=== PATIENT | female | born 1995 | race African-American/Black ===

== ENCOUNTER 2017-06-25 11:27 | Day surgery (SDC) | payer MEDICAID ==
[2017-06-25 12:28] VITALS: BP 145/86; TEMP 98.5; BMI 28.1
[2017-06-25] MEDS ORDERED: FLU VACC QS2017-18 36 mo. & older 0.5 ML SYRINGE IM ONE (12:30)
--- NOTE | 2017-06-25 12:31 | PDOC.LDHP ---
Labor and Delivery H&P Chief complaint: other (Blood pressure monitoring) HPI: 21 yo female @ 36.1 weeks dated by 3T US is here as she was having high BP at outside PNC. States shes had blood pressures recorded at outside clinic was 160-180. Mainly pressures have been recorded around 130's. Feeling baby move. Denies ctx, bleeding or loss of fluid. Denies any headaches, dizziness, lightheadness. Denies any vision changes. Reports some swelling in her legs overnight. Denies any other concerns at this time. Current gestational age (weeks): 36 (1 day) Due date: 07/22/17 Dating criteria: other (3T US) Grav: 1 Para: 0 Current complications: none Abnormal US findings: No Past Medical History: PMH: none PSH: none Current medications: pre-annie vitamins Social history: none - Physical Exam Vital signs reviewed and normal: yes General: NAD, resting Heart: RRR Lungs: CTAB Abdomen: NTTP Extremeties: no edema FHT: category 1, variability present [place] contractions every: 0 - OB Labs Blood type: B RH: positive Antibody Screen: negative HIV: negative RPR: negative HEPSAg: negative 1 hour GCT: negative GBS: unknown Rubella: immune - Assessment Elevated BP at outisde Clinic - Plan Plan: observation in L&D -: 21 yo f @ 36.1 wks dated by 3T US is here due to high BP at PNC -Ordering CMP, CBC, urine pr/cr to assess for signs of preeclampsia -BP elevated at 130's on monitor. Likely has gestational HTN. will continue to monitor for a few hours and make sure she doesn't have any sever pressures. -FHT 140. Cat 1 strip. No ctx noted. -will continue to monitor patient. Late to Care -pt presented to care only last week. Labs outside were normal. -Will continue to monitor with FHT <Aryan Méndez - Last Filed: 06/25/17 12:27> <Juana Duncan - Last Filed: 06/25/17 13:20> Allergies/Adverse Reactions: Allergies Allergy/AdvReac Type Severity Reaction Status Date / Time No Known Allergies Allergy Unverified 06/25/17 12:21 Attending Addendum - Attending Addendum I personally evaluated the patient and discussed the management with Dr. Méndez I agree with the History, Examination, Assessment and Plan documented above with any addition or exceptions noted below. 21 yo female at 36.1 wks by 34.6 wk sono (BPD only but c/w anatomy sono at 35.6 wks) here for traige for elevated BP. Patient states she is doing well. No BOWEN, visual changes, CP, SOB, abdominal pain. Mild edema noted yesterday to LE bilaterally. Otherwise she also reports good FM. Denies LOF, VB, discharge, and contractions. Today during OV was noted to have elevated BP and was sent for triage. During triage BP has been some mild range pressures but largely normotensive. Unable to know baseline due to late entry of care at 34.6 wks. Stat labs pending. BPP ordered. NST reactive. Will continue prolonged BP monitoring. 1. sIUP: IOB labs and anatomy sono reveiwed but limited by gestational age. 1 hour gtt = 109. Sick cell screen negative. GBS pending. No flu. No Tdap. 2. Late/incomplete care: Poor dating. 3. Elevated BP: At present appears to have gHTN. Will continue to monitor. Repeating labs today. On 06/22/17 labs were the following: Cr = 0.72, AST = 12, PLT = 243, Up/cr = 203. Remains asymptomatic. EFW = 2645g (35.5%) at 35.6 therefore no need to repeat at this time. 4. NSAID use: patient reported NSAID use during . BPP pending. Continue q 15 min BP monitoring. Labs and antepartum testing pending. NST reactive. If just gHTN will consider starting steroid course due to poor dating with possible need for early delivery due to spectrum of disease. Will need TID daily BP monitoring. Will need weekly testing and preE labs. Add 24 hour urine protein? Possible d/c to home with precautions. If preE will consider obs overnight with steroid course vs delivery pending severity. Will reassess prn and hourly. Ino <Juana Dnucan - Last Filed: 06/25/17 13:20>
[2017-06-25 13:05] LABS: #Basophils 0.1 thou/uL (0.0-0.2); #Eosinphils 0.1 thou/uL (0.0-0.7); #Monocytes 0.5 thou/uL (0.11-0.59); #Neutrophils 3.4 thou/uL (1.40-6.50); %Basophils 1.5 % (0.0-1.0); %Eosinophils 1.9 % (0.0-10.0); %Lymphocytes 32.1 % (28.0-48.0); %Monocytes 8.1 % (0.0-4.0); %Neutrophils 56.4 % (31.0-61.0); Hemoglobin 11.7 g/dL (12.0-16.0); Mean Corpuscular HGB CONC 33.8 g/dL (32.0-36.0); Mean Corpuscular Hemoglobin 32.6 pg (25.0-35.0); Mean Corpuscular Volume 96.5 fl (77.0-87.0); Mean Platelet Volume 7.5 fL (7.4-10.4); Platelet Count 235 thou/uL (130-400); RBC Distribution Width 11.8 % (11.5-14.5); Red Blood Cell (RBC) Count 3.59 mill/uL (4.00-5.20); White Blood Cell (WBC) Count 6.1 thou/uL (4.8-10.8)
[2017-06-25 13:26] LABS: Creatinine, Urine 40.44 mg/dL (47-110); Protein, Urine Random Quant Less than 10 mg/dL
[2017-06-25 13:28] LABS: ALT (SGPT) 7 U/L (8-55); AST (SGOT) 13 U/L (5-30); Albumin 3.3 g/dL (3.5-5.0); Alkaline Phosphatase 228 U/L (40-150); Anion Gap 9 mmol/L (10-20); BUN (Urea Nitrogen) 6 mg/dL (8.4-21.0); Bilirubin, Total 0.5 mg/dL (0.2-1.2); Calc. Creatinine Clearance 152 mL/min (70-130); Calcium 8.9 mg/dL (7.8-10.44); Carbon Dioxide 26 mmol/L (22-29); Chloride 105 mmol/L (98-107); Estimated GFR-MDRD Greater than 90; Globulin 3.3 g/dL (2.4-3.5); Glucose 99 mg/dL (70-105); Protein, Total 6.6 g/dL (6.0-8.3); Sodium 136 mmol/L (136-145)
[2017-06-25] MEDS ORDERED: Betamet Acet/Betamet Na Ph 30 MG/5 ML VIAL IM SCH (14:00)
--- NOTE | 2017-06-25 14:42 | PDOC.EVN ---
Event Note - Event Note Event Note: Patient doing well. No severe range blood pressures and asymptomatic. Patient is going to collect 24 hour urine protein at home due to equivocal protein/ creatinine ratio starting today. BPP 8/8, NST reactive. First dose of betamethasone given and patient to return for second tomorrow. SVE /high. Patient discharged home. <Logan Valero - Last Filed: 06/25/17 14:40> Attending Addendum - Attending Addendum I personally evaluated the patient and discussed the management with Dr. Valero I agree with the History, Examination, Assessment and Plan documented above with any addition or exceptions noted below. 21 yo at 36.1 wk by 36.4 wk sono dx with gHTN. Due to poor dating and concern for need for early delivery, BMZ course started. Cr mildly high at this time with equivocal pro/cr ratio. Will return for 2nd dose BMZ and 24 hour urine. Sent with BP monitor for TID BP evaluation. Strict precautions discussed. BP normotensive to mild range on occasion. Will need twice weekly labs and weekly testing. Will need repeat growth at 37 wks. Ino <Juana Duncan - Last Filed: 06/25/17 15:40>
--- NOTE | 2017-06-25 15:07 | ULT ---
LIMITED OBSTETRICAL ULTRASOUND: INDICATION: History of gestational hypertension. FINDINGS: The fetus was 2 out of 2 for movement, 2 out of 2 for tone, 2 out of 2 for breathin g, and 2 out of 2 for amniotic fluid volume. The biophysical profile is 8 out of 8. The CAMILO measure d 8.6 cm. The average gestational age by ultrasound was 36 weeks and 1 day with estimated date of de livery of 07/22/17. Cardiac activity is noted at 149 b.p.m. The placenta is anterior in location with out overt evident of previa. IMPRESSION: 1. Biophysical profile 8 out of 8. 2. Amniotic fluid index of 8.6 is near the 5th percentile based on gestational age. Close clinical and sonographic followup is recommended. POS: JANICE
== END 2017-06-25 14:35 | disposition home or self-care (01) ==
LOC: L&D/OP 11:27
PROVIDERS: ATTEND Student in an Organized Health Care Education/Training Program
DX: O13.3 Gestational [pregnancy-induced] hypertension without significant proteinuria, third trimester (principal); Z79.899 Other long term (current) drug therapy; Z3A.36 36 weeks gestation of pregnancy
CPT/HCPCS: 36415; 76819; 80053; 82570; 84156; 84550; 85025; J0702

== ENCOUNTER 2017-06-26 14:53 | Day surgery (SDC) | payer MEDICAID ==
[2017-06-26 15:07] VITALS: BP 150/91; TEMP 98.1; BMI 28.1
[2017-06-26 15:15] LABS: Collection Duration 24 hrs; Urine Total Volume 2200 mL (600-1600)
[2017-06-26] MEDS ORDERED: Betamet Acet/Betamet Na Ph 30 MG/5 ML VIAL IM SCH (15:30)
[2017-06-26] MEDS ORDERED: FLU VACC QS2017-18 36 mo. & older 0.5 ML SYRINGE IM ONE (15:30)
--- NOTE | 2017-06-26 15:36 | PDOC.LDPN ---
Labor & Delivery Progress Note - Subjective Subjective: comfortable, no concerns - Objective Abnormal vital signs: Initial elevated BP to 150s/90s, improved to 135/88 when pt settled down General: NAD Uterine fundus: non tender FHT: category 1 (reactive NST) - Assessment (1) Gestational hypertension Code(s): O13.9 - GESTATIONAL HTN W/O SIGNIFICANT PROTEINURIA, UNSP TRIMESTER Status: Acute QualifierTitle: Trimester: third trimester Qualified Code(s): O13.3 - Gestational [-induced] hypertension without significant proteinuria, third trimester Comment: 21 yo @ 36.2 WGA by 3T US presents for second steroid injection. She denies vision changes, abd pain, swelling, headache, LOF, vaginal bleeding, ctx. Reports movement. Patient was late to OB care, but has had elevated BP in clinic and is being worked up for Pre-eclampsia. Her BP at home are much lower than in clinic. She kept a log since yesterday and they were 138/82 and 123/71. BP here has been from 135/88-158/97. NST reactive -Collected 24 h urine protein, result was <10. No signs/symptoms of pre- eclampsia at this time. -Completed both doses of steroids -Encourage TID BP monitoring, will send with BP log -F/u in PNC on Wednesday -Will d/c home. -: d/c home with f/u at pre-annie clinic on Wednesday <Rupa Nicolas - Last Filed: 06/26/17 15:34> Attending Addendum - Attending Addendum I personally evaluated the patient and discussed the management with Dr. Nicolas I agree with the History, Examination, Assessment and Plan documented above with any addition or exceptions noted below. 21 yo at 36.2 wk by 36.4 wk sono dx with gHTN here for BMZ#2 and 24 hour protein collection. Due to poor dating and concern for need for early delivery, BMZ course started. Now completed. Cr mildly high at this time with equivocal pro/cr ratio during workup. 24 our protein now collected. No evidence of proteinuria at this time. Will continue to trend routinely at PNC OV. Patient will likely convert to severe gHTN vs preeclampsia. Continue BP monitor at home TID. Strict precautions discussed. Remains asymptomatic. Will need twice weekly labs/OVs/urine protein and weekly testing. Will need repeat growth at 37 wks. Ino <Juana Duncan - Last Filed: 06/26/17 17:10>
[2017-06-26 15:42] LABS: Protein, Urine Less than 10 mg/dL (1-14)
== END 2017-06-26 16:05 | disposition home or self-care (01) ==
LOC: L&D/OP 14:53
PROVIDERS: ATTEND Student in an Organized Health Care Education/Training Program
DX: O13.3 Gestational [pregnancy-induced] hypertension without significant proteinuria, third trimester (principal); Z3A.36 36 weeks gestation of pregnancy; Z79.899 Other long term (current) drug therapy
CPT/HCPCS: 59025; 84156; 96372; 99283

== ENCOUNTER 2017-07-08 10:28 | Inpatient (IN) | payer MEDICAID ==
[2017-07-08 10:58] VITALS: BMI 28.6
[2017-07-08] MEDS ORDERED: FLU VACC QS2017-18 36 mo. & older 0.5 ML SYRINGE IM ONE (11:15)
[2017-07-08] MEDS ORDERED: Ondansetron HCl/PF 4 MG/2 ML Vial IVP PRN (11:26)
[2017-07-08] MEDS ORDERED: Lidocaine 1% (PF) 30 ML VIAL SC PRN (11:26)
[2017-07-08] MEDS ORDERED: Promethazine HCl 25 MG/ML VIAL IM PRN (11:26)
[2017-07-08] MEDS ORDERED: LR / Pitocin 40 units/1000 ml 1,000 ML IV PRN (11:26)
[2017-07-08] MEDS ORDERED: Acetaminophen 500 MG TAB PO PRN (11:26)
[2017-07-08 11:46] LABS: Bilirubin Negative (Negative); Blood, Urine Negative (Negative); Clarity CLEAR (Clear); Glucose, Urine (Dipstick) Negative (Negative); Hemoglobin 11.6 g/dL (12.0-16.0); Leukocyte Trace (Negative); Mean Corpuscular Hemoglobin 32.9 pg (25.0-35.0); Mean Corpuscular Volume 96.7 fl (77.0-87.0); Mean Platelet Volume 7.8 fL (7.4-10.4); Nitrite Negative (Negative); Platelet Count 211 thou/uL (130-400); Protein, Urine (Dipstick) Negative (Neg-Trace); RBC Distribution Width 12.3 % (11.5-14.5); Red Blood Cell (RBC) Count 3.53 mill/uL (4.00-5.20); Urobilinogen 0.2 mg/dL (0.2-1.0); White Blood Cell (WBC) Count 6.7 thou/uL (4.8-10.8)
[2017-07-08 11:49] LABS: Bacteria/HPF Rare-Few HPF (None Seen); Hyaline Casts/LPF 0-3 HYALINE CAST LPF (0-3 Hyaline); Pathc Cast-AUWi Flag 0.27 (0-2.49); RBC/HPF 0-3 HPF (0-3); Squamous Epithelial 0-3 HPF (0-3)
--- NOTE | 2017-07-08 11:50 | PDOC.LDHP ---
Labor and Delivery H&P Chief complaint: other (Gestation htn history, found to have elevated pressures at clinic) HPI: 21 yo @ 38 weeks w/ h/o gestational htn and positive chlamydia during presents from clinic after having 2 separate elevated BPs highest 150s systolic. She denies headache, nvdc, cp, sob, epigastric and ruq pain and denies vision changes. Current gestational age (weeks): 38 Due date: 07/22/17 Dating criteria: other (poor dating, 3rd tri US) Grav: 1 Para: 0 OB History Details: Gestational htn chlamydia poor dates received steroids X2 per OB provider Current complications: gestational hypertension Abnormal US findings: No (Vertex presentation, anterior placenta) Current medications: pre- vitamins Previous surgical history: none Social history: none - Physical Exam Abnormal vital signs: elevated BP @ 138/74 General: NAD Heart: RRR Lungs: nonlabored breathing Abdomen: NTTP Extremeties: no edema FHT: category 1, variability present [place] contractions every: absent - Vaginal Exam cm dilated: 1 Effacement: 0% Station: -3 - OB Labs Blood type: B RH: positive Antibody Screen: negative HIV: negative RPR: negative HEPSAg: negative 1 hour GCT: negative GBS: negative Urine drug screen: not done Rubella: immune - Assessment L&D Assessment: medically indicated induction (Gest htn @ 38 weeks -will admit to l&d for induction and r/o preeclampsia -cbc, cmp, urine protein/creatinine, uric acid, LDH -Pt had positive chlamydia test with witnessed medication administration after positive test -monitor vitals per routine) - Plan Plan: admit to L&D, cervical ripening, labor augmentation if indicated, anesthesia consult for pain management <Bebo Cui - Last Filed: 07/08/17 11:47> <Asad Diallo - Last Filed: 07/08/17 13:23> Allergies/Adverse Reactions: Allergies Allergy/AdvReac Type Severity Reaction Status Date / Time No Known Allergies Allergy Verified 07/08/17 10:53 Attending Addendum - Attending Addendum I personally evaluated the patient and discussed the management with Dr. Cui. I agree with and repeated the History, Examination, Assessment and Plan documented above with any addition or exceptions noted below. G1 @ 38w by supoptimal dating (3T sono) who presents from [facility] for elevated pressures. +FM, denies preE symptoms, no LOF/vb/ctx. Past history reviewed. A/P: Gestational hypertension, uncontrolled, vs superimposed preE Chlamydia s/p tx GBS neg Late to care 1. PreE workup 2. Ripening with cytotec 3. Monitor BP 4. Anticipate <Asad Diallo - Last Filed: 07/08/17 13:23>
[2017-07-08 11:57] LABS: Specific Gravity, Urine 1.004 (1.002-1.036)
[2017-07-08] MEDS: Misoprostol 100 MCG TAB VAG SCH (12:14)
[2017-07-08 12:34] LABS: ALT (SGPT) 7 U/L (8-55); AST (SGOT) 12 U/L (5-30); Albumin 3.4 g/dL (3.5-5.0); Alkaline Phosphatase 263 U/L (40-150); Anion Gap 9 mmol/L (10-20); BUN (Urea Nitrogen) 10 mg/dL (8.4-21.0); Bilirubin, Total 0.5 mg/dL (0.2-1.2); Calc. Creatinine Clearance 166 mL/min (70-130); Calcium 9.2 mg/dL (7.8-10.44); Carbon Dioxide 24 mmol/L (22-29); Chloride 107 mmol/L (98-107); Estimated GFR-MDRD Greater than 90; Globulin 3.2 g/dL (2.4-3.5); Glucose 71 mg/dL (70-105); Potassium 3.8 mmol/L (3.5-5.1); Protein, Total 6.6 g/dL (6.0-8.3); Sodium 136 mmol/L (136-145)
[2017-07-08 12:51] LABS: Syphilis Antibody Nonreactive (Nonreactive); Syphilis Antibody Index 0.03 S/CO (<1.00 Non-Reactive)
[2017-07-08 12:52] LABS: HBSAg Index 0.19 S/CO (0-0.99); Hep B Surf Ag Non-Reactive S/CO (NonReactive)
--- NOTE | 2017-07-08 16:22 | PDOC.LDPN ---
Labor & Delivery Progress Note - Subjective Subjective: comfortable, no concerns - Objective Abnormal vital signs: Elevated BP highest 145 sys General: NAD Uterine fundus: non tender Dilation: 3 Effacement: 50% Station: -2 FHT: category 1, variability present (HR 150) [place] contractions every: 1-3 - Assessment (1) Term Code(s): Z34.80 - ENCOUNTER FOR SUPRVSN OF NORMAL , UNSP TRIMESTER Current Visit: Yes Status: Acute (2) Gestational hypertension Code(s): O13.9 - GESTATIONAL HTN W/O SIGNIFICANT PROTEINURIA, UNSP TRIMESTER Current Visit: No Status: Acute QualifierTitle: Trimester: third trimester Qualified Code(s): O13.3 - Gestational [-induced] hypertension without significant proteinuria, third trimester Plan: continue plan of care -: Pre e labs negative continue to monitor pressures made cervical change after placement of cytotec contractions q1-3 min, FHR 150s mod variability last check 3, 50, -2 augment with pitocin if contractions subside, for now continue plan of care cervical checks q2-3hrs <Bebo Cui - Last Filed: 07/08/17 16:17> Attending Addendum - Attending Addendum I personally evaluated the patient and discussed the management with Dr. Cui. I agree with the History, Examination, Assessment and Plan documented above with any addition or exceptions noted below. <Asad Diallo - Last Filed: 07/09/17 05:40>
[2017-07-08] MEDS: LR 500 ML/Oxytocin 10 units 500 ML IV SCH (17:17)
--- NOTE | 2017-07-08 20:20 | PDOC.LDPN ---
Labor & Delivery Progress Note - Subjective Subjective: comfortable - Objective Vital signs reviewed and normal: yes General: NAD, resting Uterine fundus: non tender SVE: 20:10 by Silvia Dilation: 3 Effacement: 50% Station: -2 FHT: category 1, variability present [place] contractions every: q2-3 minutes - Assessment (1) Term Code(s): Z34.80 - ENCOUNTER FOR SUPRVSN OF NORMAL , UNSP TRIMESTER Current Visit: Yes Status: Acute Comment: 21 year old at 38 wks presents for induction of labor for gestational HTN - Last cervical check /-2; unchanged from 16:00 exam - Currently on pitocin at 4 units; increased from 2 units; continue to titrate - s/p cytotec x1; tachysystole - Pre-E labs negative - q4h checks while in latent stage of labor - Consider IUPC/rupture of membranes at next check depending on station (2) Gestational hypertension Code(s): O13.9 - GESTATIONAL HTN W/O SIGNIFICANT PROTEINURIA, UNSP TRIMESTER Current Visit: No Status: Acute QualifierTitle: Trimester: third trimester Qualified Code(s): O13.3 - Gestational [-induced] hypertension without significant proteinuria, third trimester Comment: 21 y/o at 38 wks presents for induction of labor for gestational HTN - Elevated BP in clinic; sent over for induction - Pre-E labs negative - Continue titration of pitocin Plan: continue plan of care, labor augmentation, pitocin for augmentation <Mesha Vega - Last Filed: 07/08/17 20:32> Attending Addendum - Attending Addendum I personally evaluated the patient and discussed the management with Dr. Vega. I agree with the History, Examination, Assessment and Plan documented above with any addition or exceptions noted below. <Deepak Ballesteros - Last Filed: 07/08/17 23:02>
[2017-07-09] MEDS: Lactated Ringer's 1,000 ML IV SCH ×5 (02:46→18:11)
--- NOTE | 2017-07-09 05:34 | PDOC.LDPN ---
Labor & Delivery Progress Note - Subjective Subjective: comfortable - Objective Vital signs reviewed and normal: yes General: NAD, resting Uterine fundus: non tender SVE: 03:15 Dilation: 3 Effacement: 50% Station: -1 FHT: category 1, variability present [place] contractions every: q2-3 min - Assessment (1) Term Code(s): Z34.80 - ENCOUNTER FOR SUPRVSN OF NORMAL , UNSP TRIMESTER Current Visit: Yes Status: Acute Comment: 21 year old at 38 wks presents for induction of labor for gestational HTN - Last cervical check /-1 soft and anterior - Currently on pitocin at 4 units; increased from 2 units; continue to titrate - s/p cytotec x1; tachysystole - Pre-E labs negative - q4h checks while in latent stage of labor - Consider IUPC/rupture of membranes (2) Gestational hypertension Code(s): O13.9 - GESTATIONAL HTN W/O SIGNIFICANT PROTEINURIA, UNSP TRIMESTER Current Visit: No Status: Acute Qualifiers: Trimester: third trimester Qualified Code(s): O13.3 - Gestational [ -induced] hypertension without significant proteinuria, third trimester Comment: 21 y/o at 38 wks presents for induction of labor for gestational HTN - Elevated BP in clinic; sent over for induction - Pre-E labs negative - Continue titration of pitocin as tolerated Plan: continue plan of care
--- NOTE | 2017-07-09 10:36 | PDOC.LDPN ---
Labor & Delivery Progress Note - Subjective Subjective: comfortable, no concerns - Objective Abnormal vital signs: BP @ 162 systolic after last cervical check, others mildly elevated General: NAD Uterine fundus: palpable contractions Dilation: 2 Effacement: 50% Station: -1 FHT: category 1 - Assessment (1) Term Code(s): Z34.80 - ENCOUNTER FOR SUPRVSN OF NORMAL , UNSP TRIMESTER Current Visit: Yes Status: Acute Comment: 21 year old at 38 wks presents for induction of labor for gestational HTN - Last cervical check /-1 soft and anterior - Currently on pitocin at 6 units; increased from 2 units; continue to titrate - s/p cytotec x1; tachysystole - Pre-E labs negative - q4h checks while in latent stage of labor - Consider IUPC/rupture of membranes (2) Gestational hypertension Code(s): O13.9 - GESTATIONAL HTN W/O SIGNIFICANT PROTEINURIA, UNSP TRIMESTER Current Visit: No Status: Acute QualifierTitle: Trimester: third trimester Qualified Code(s): O13.3 - Gestational [-induced] hypertension without significant proteinuria, third trimester Comment: 21 y/o at 38 wks presents for induction of labor for gestational HTN - Elevated BP in clinic; sent over for induction - Pre-E labs negative - Continue titration of pitocin as tolerated -Last BP elevated but pt denies changes in vision, headache, ruq and epigastric pain. Reflexes are 2+ and no clonus is present Plan: continue plan of care, pitocin for augmentation, resuscitative measures <Bebo Cui - Last Filed: 07/09/17 10:34> Attending Addendum - Attending Addendum I personally evaluated the patient and discussed the management with Dr. Cui and [place]. I agree with the History, Examination, Assessment and Plan documented above with any addition or exceptions noted below. Plan for balloon + pit. <Asad Diallo - Last Filed: 07/09/17 13:44>
--- NOTE | 2017-07-09 11:27 | PDOC.LDPN ---
Labor & Delivery Progress Note - Subjective Subjective: comfortable (no epidural, no meds) - Objective Vital signs reviewed and normal: yes General: NAD, resting Uterine fundus: palpable contractions Dilation: 4 Effacement: 50% Station: -2 FHT: category 1 (occassional cat 2 but easily resolves) [place] contractions every: 4 Other exam findings: Intact, cephalic Procedures: Cooks balloon placed - Assessment (1) Gestational hypertension Code(s): O13.9 - GESTATIONAL HTN W/O SIGNIFICANT PROTEINURIA, UNSP TRIMESTER Current Visit: No Status: Acute Qualifiers: Trimester: third trimester Qualified Code(s): O13.3 - Gestational [ -induced] hypertension without significant proteinuria, third trimester Comment: 21 yo at 38.1 wks admitted for IOL. BP high normal to mild range. Asymptomatic. Labs WNL. Continue active management. Cooks and pit per protocol at present. Tug on Cooks in 2 hours. AROM with IUPC when possible. If SROM place IUPC as well. Cat 1 tracing at present. Occasional cat 2 that easily resolves. Plan: continue plan of care
--- NOTE | 2017-07-09 14:46 | PDOC.LDPN ---
Labor & Delivery Progress Note - Subjective Subjective: comfortable, no concerns - Objective Vital signs reviewed and normal: yes Abnormal vital signs: BP 140/74 General: NAD, resting Uterine fundus: non tender Other exam findings: Cooks balloon remains in place with gentle pulling Plan: continue plan of care, pitocin for augmentation (Will recheck cervix @ 1530 and determine if balloon still in place. Consider AROM at that time)
--- NOTE | 2017-07-09 16:14 | PDOC.LDPN ---
Labor & Delivery Progress Note - Subjective Subjective: comfortable - Objective Vital signs reviewed and normal: yes General: NAD, resting Dilation: 5-6 Effacement: 50% Station: -2 FHT: category 1 [place] contractions every: 2-3 min Other exam findings: balloon was not in place so removed Plan: continue plan of care (Pt wanted to get epidural prior to AROM so will hold off until then. Plan to AROM and place IUPC when epidural in place.)
[2017-07-09] MEDS ORDERED: Bupivacaine 0.5% 20 ML, Fentanyl 400 MCG in Sodium Chloride 0.9% 72 ML EPIDURAL SCH (16:15)
[2017-07-09] MEDS ORDERED: Dexamethasone 20 MG/5 ML VIAL ONE (16:19)
[2017-07-09] MEDS ORDERED: Ketorolac Tromethamine 30 MG/ML VIAL ONE ×2 (16:19→23:11)
[2017-07-09] MEDS ORDERED: Ondansetron HCl/PF 4 MG/2 ML Vial ONE ×2 (16:19→23:11)
[2017-07-09] MEDS ORDERED: Eucerin (Mineral Oil/Petrolatum,White) 30 gm Jar TOP PRN (16:49)
[2017-07-09] MEDS ORDERED: Ondansetron HCl/PF 4 MG/2 ML Vial IVP PRN (16:49)
[2017-07-09] MEDS ORDERED: ePHEDrine/0.9% NaCl/PF SYRINGE 50 mg/10 ml SLOW IVP PRN (16:49)
[2017-07-09] MEDS ORDERED: diphenhydrAMINE 50 MG/ML VIAL IVP PRN (16:49)
[2017-07-09] MEDS ORDERED: Lactated Ringer's 500 ML IV PRN (16:49)
[2017-07-09] MEDS ORDERED: Promethazine HCl 25 MG/ML VIAL IM PRN (16:49)
[2017-07-09] MEDS ORDERED: Acetaminophen 325 MG TAB PO PRN (16:49)
[2017-07-09] MEDS ORDERED: Naloxone HCl 0.4 mg/ml Vial IVP PRN ×2 (16:49)
[2017-07-09] MEDS ORDERED: Communication Order-Pharmacy FS SCH (17:00)
[2017-07-09] MEDS ORDERED: Fentanyl 4mcg/Marcaine 0.1% Cassette 100 ML EPIDURAL SCH (17:00)
--- NOTE | 2017-07-09 18:02 | PDOC.LDPN ---
Labor & Delivery Progress Note - Objective General: NAD, resting Uterine fundus: non tender SVE: 5-6 Dilation: 80 Station: -2 FHT: category 2 (160s, mod ranjeet, no accels, recurrent lates, cat 2) [place] contractions every: q3m AROM: clear fluid IUPC placed: yes Resuscitative measures: maternal oxygen, maternal IV fluids, maternal position change Plan: resuscitative measures (D/c pitocin, IVFB. BP decreased s/p epidural. If no improvement d/w anesthesia, consider )
[2017-07-09] MEDS: Misoprostol 100 MCG TAB VAG SCH ×2 (19:41→20:54)
[2017-07-09] MEDS: LR 500 ML/Oxytocin 10 units 500 ML IV SCH (20:07)
--- NOTE | 2017-07-09 21:28 | PDOC.LDPN ---
Labor & Delivery Progress Note - Subjective Subjective: comfortable - Objective Vital signs reviewed and normal: yes Abnormal vital signs: BP 158/89 General: NAD Uterine fundus: non tender SVE: 21:05 by nurse Dilation: 6 Effacement: 50% Station: -2 FHT: category 2 (Persistent category II strip without adequate contractoins), variable decelerations, late decelerations, absent or minimal variables [place] contractions every: q3 minutes IUPC placed: yes (replaced old IUPC as it was not picking up contractions) Resuscitative measures: maternal oxygen - Assessment (2) Gestational hypertension Code(s): O13.9 - GESTATIONAL HTN W/O SIGNIFICANT PROTEINURIA, UNSP TRIMESTER Current Visit: No Status: Acute QualifierTitle: Trimester: third trimester Qualified Code(s): O13.3 - Gestational [-induced] hypertension without significant proteinuria, third trimester Comment: 21 yo at 38.1 wks admitted for IOL. BP high normal to mild range. Asymptomatic. Labs WNL. Continue active management. Persistent category II strip without adequate contractions. Will proceed with C/S at this time. This was discussed with family. (4) Term Code(s): Z34.80 - ENCOUNTER FOR SUPRVSN OF NORMAL , UNSP TRIMESTER Current Visit: Yes Status: Acute Comment: 21 year old at 38 wks presents for induction of labor for gestational HTN - Last cervical check /-2 soft and anterior - Currently on pitocin at 3 units - s/p cytotec x1; tachysystole - Pre-E labs negative - New IUPC placed at 21:05 by nurse - MVU's not adequate at this time - FSE placed at apprixmately 22:00 - Minimal variablity, persistent - persistent category II strip - Will proceed with C/S at this time, this was discussed with patient Plan: other (Proceed with C/S for non-reassuring strip) <Mesha Vega - Last Filed: 07/09/17 22:12> - Assessment (1) Gestational hypertension Code(s): O13.9 - GESTATIONAL HTN W/O SIGNIFICANT PROTEINURIA, UNSP TRIMESTER Current Visit: No Status: Acute Qualifiers: Trimester: third trimester Qualified Code(s): O13.3 - Gestational [ -induced] hypertension without significant proteinuria, third trimester Comment: BPs became severe range with proteinuria. See above. <Juana Duncan - Last Filed: 07/11/17 08:25> Attending Addendum - Attending Addendum I personally evaluated the patient and discussed the management with Dr. Bay I agree with the History, Examination, Assessment and Plan documented above with any addition or exceptions noted below. Persistent cat 2 tracing remote from delivery in G1 patient with prolonged induction of labor due to gHTN with suspicion for likely progression to preeclampsia soon. R/B/A discussed. Not able to improve tracing but a short time with interventions. Not able to tolerate pitocin. No contractions without augmentation. Has been AROMed since 1700. Patient and family questions addressed, would like to proceed with section. Ino <Juana Duncan - Last Filed: 07/11/17 08:25>
[2017-07-09] MEDS ORDERED: CEFAZOLIN/Water 2 GM/20 ML SYRINGE ONE (21:53)
[2017-07-09] MEDS ORDERED: CEFAZOLIN/Water 2 GM/20 ML SYRINGE SLOW IVP SCH (22:30)
[2017-07-09] MEDS ORDERED: Bicitra 30 ML UDCUP PO SCH (22:30)
[2017-07-09] MEDS ORDERED: Fentanyl 100 MCG/2 ML VIAL ONE (22:34)
[2017-07-09] MEDS ORDERED: Dexamethasone 4 mg/ml Vial ONE (23:11)
[2017-07-09] MEDS ORDERED: Oxytocin 10 UNITS/ML VIAL ONE (23:11)
[2017-07-09 23:48] LABS: Base Excess (BEa) 0.1 mEq/L (0 (+/-) 2.5)
[2017-07-09 23:50] LABS: Actual Bicarbonate (HCO3v) 29 mEq/L (22-26)
[2017-07-09 23:51] LABS: Base Excess 1.3 mEq/L (0 (+/- 2.5))
[2017-07-10] MEDS ORDERED: Morphine PF 1 MG/ML SYR ONE (00:04)
[2017-07-10] MEDS ORDERED: Meperidine HCl/PF 25 MG/ML VIAL SLOW IVP PRN (00:33)
[2017-07-10] MEDS ORDERED: Ketorolac Tromethamine 30 MG/ML VIAL IVP PRN (00:33)
[2017-07-10] MEDS ORDERED: Eucerin (Mineral Oil/Petrolatum,White) 30 gm Jar TOP PRN (00:33)
[2017-07-10] MEDS ORDERED: Promethazine HCl 25 MG SUPP PR PRN (00:33)
[2017-07-10] MEDS ORDERED: Naloxone HCl 0.4 mg/ml Vial IV PRN (00:33)
[2017-07-10] MEDS ORDERED: Promethazine HCl 25 MG/ML VIAL IM PRN (00:33)
[2017-07-10] MEDS ORDERED: Naloxone HCl 0.4 mg/ml Vial IVP PRN ×2 (00:33)
[2017-07-10] MEDS ORDERED: diphenhydrAMINE 50 MG/ML VIAL IVP PRN (00:33)
[2017-07-10] MEDS ORDERED: Ondansetron HCl/PF 4 MG/2 ML Vial IVP PRN ×2 (00:33)
[2017-07-10] MEDS ORDERED: HYDROmorphone 2 MG/ML VIAL SLOW IVP PRN (00:33)
[2017-07-10] MEDS ORDERED: Communication Order-Pharmacy FS SCH (00:45)
[2017-07-10] MEDS ORDERED: Ketorolac Tromethamine 30 MG/ML VIAL IVP SCH (00:45)
[2017-07-10] MEDS: Misoprostol 100 MCG TAB VAG SCH ×2 (01:08→03:46)
[2017-07-10] MEDS ORDERED: Ondansetron HCl/PF 4 MG/2 ML Vial ONE (01:57)
--- NOTE | 2017-07-10 03:06 | OP ---
PREOPERATIVE DIAGNOSES: 1. Gestational hypertension. 2. Failed induction of labor. 3. Nonreassuring heart tracing. 4. Primary low transverse section. POSTOPERATIVE DIAGNOSES: 1. Gestational hypertension. 2. Failed induction of labor. 3. Nonreassuring heart tracing. 4. Primary low transverse section. PROCEDURE: Primary low transverse section via Pfannenstiel skin incision. SURGEON: Dr. Linda Schmitz, Dr. Mesha Vega. [employer]NAG[employer] CONSULTANT: Dr. Jesus Antunez and Dr. Juana Duncan. ANESTHESIA: Epidural. COMPLICATIONS: None. ESTIMATED BLOOD LOSS: 700 mL. FLUIDS: 2 liters. URINE OUTPUT: 800 mL of clear urine at the end of the procedure. INDICATIONS: This is a 21-year-old G1, P0 at 38 weeks and 1 day, presenting for induction of labor secondary to gestational hypertension. The patient had progressed to 6 cm; however, developed minimal variability and recurrent decelerations, so decision was made to proceed with primary section. FINDINGS: Male infant delivered in the occiput posterior position. No nuchal cord. Delivery time 2326. Apgars 7 and 9. Weight 6 pounds, 5 ounces. Clear fluid. Normal uterus, tubes, and ovaries bilaterally. PROCEDURE: After informed consent was obtained, the patient was taken to the operating room, where epidural anesthesia was found to be adequate. She was then prepped and draped in the normal sterile fashion in the dorsal supine position with a leftward tilt. A Pfannenstiel skin incision was made with a scalpel and carried down to the underlying layer of the fascia. The fascia was incised in the midline and the incision was extended laterally with the [place] scissors. The superior aspect of the fascial incision was then grasped with Dwight clamps and the rectus muscles were dissected off bluntly and using sharp dissection. The inferior aspect of the fascial incision was, in the similar fashion, grasped with Dwight clamps and the rectus muscles were dissected off bluntly and with sharp dissection. The rectus muscles were then in the midline and the peritoneum was identified and entered bluntly. This incision was extended laterally. The bladder blade was inserted and the lower uterine segment was incised in transverse fashion with the scalpel. The uterine incision was then bluntly extended. The bladder blade was removed and the 's head was delivered atraumatically. The cord was clamped and cut and the was handed off to awaiting pediatricians. Cord gases were sent. The placenta was then removed using gentle fundal massage. The uterus was exteriorized and cleared of all clots and debris. The uterine incision was repaired with 1-0 Monocryl in a running locked fashion. A second layer of the same suture was used to imbricate and obtain hemostasis. The uterus was returned to the abdomen. The gutters were cleared of all clots and debris and the hysterotomy was visualized again and noted to be hemostatic. The muscle was closed with a single vertical mattress suture using 1-0 Vicryl. The fascia was reapproximated with 0 Vicryl in a running fashion. The subcuticular space was reapproximated with 2-0 Vicryl and the skin was closed with 4-0 Monocryl in a running subcuticular fashion. The patient tolerated the procedure well. Sponge, lap, and needle counts were correct x2. Two grams of Ancef was given prior to the procedure. Fundal massage was performed at the end of the procedure to remove all clots from the lower uterine segment. The patient was taken to the recovery room in stable condition. SHANNA
[2017-07-10] MEDS ORDERED: Calcium Gluconate 4.6 MEQ in Sodium Chloride 0.9% 100 ML IVPB PRN (03:12)
[2017-07-10] MEDS ORDERED: Adacel (T-DAP) 0.5 ML VIAL IM ONE (03:12)
[2017-07-10] MEDS ORDERED: Lanolin Ointment 7 GM TUBE TOP PRN (03:12)
[2017-07-10] MEDS ORDERED: HYDROcodone/Acetaminophen 5/325 mg Tablet PO PRN (03:12)
[2017-07-10] MEDS ORDERED: Magnesium Sulfate 20 GM/WATER 500 ML BAG IVPB SCH (03:15)
[2017-07-10] MEDS: Lactated Ringer's 1,000 ML IV SCH (03:46)
--- NOTE | 2017-07-10 04:08 | PDOC.PP ---
Post Progress Note Post Day #: 1 Subjective: Patient doing well 4 hours post-operatively. Her pain is well controlled. She denies any nausea, vomiting, chest pain, or shortness of breath. She had a mild headache approximately one hour ago that has since resolved. PO intake tolerated: no (NPO) Flatus: no Ambulation: no Vital Signs (12 hours) Temp Pulse Resp 07/09/17 20:00 97.8 F 78 20 Weight Weight 75.75 kg - Physical Examination General: NAD Cardiovascular: no m/r/g Respiratory: clear to auscultation bilaterally, non-labored breathing Abdominal: + bowel sounds, lochia (wnl), no distention Skin: no rash Psychiatric: normal affect Result Diagrams: 07/10/17 04:08 07/10/17 04:08 Additional Labs: Post Labs Blood Type B POSITIVE 07/08/17 11:00 Hep Bs Antigen Non-Reactive S/CO (NonReactive) 07/08/17 11:00 (1) Pre-eclampsia Code(s): O14.90 - UNSPECIFIED PRE-ECLAMPSIA, UNSPECIFIED TRIMESTER Status: Acute Comment: 21 yo at 38.1 wks admitted for IOL for gHTN - s/p pLTCS at 11:21 on 07/09/2017. No complications. EBL 700 mL - BP's PP have slowly trended up. They have ranged from SBP 140's to 160's. DBP' s have ranged from 90's to 115. Decision made to start Magnesium for persistently elevated severe range pressures. - Q2H Mg checks - Will check pre-E labs to include CBC, CMP, UA, LDH, Uprotein, Ucreatinine - Mg started at 04:00 AM on 07/10/2017 (2) Gestational hypertension Code(s): O13.9 - GESTATIONAL HTN W/O SIGNIFICANT PROTEINURIA, UNSP TRIMESTER Status: Acute QualifierTitle: Trimester: third trimester Qualified Code(s): O13.3 - Gestational [-induced] hypertension without significant proteinuria, third trimester Comment: 21 yo at 38.1 wks admitted for IOL. - s/p pLTCS at 11: 21 on 07/09/2017. No complications. EBL 700 mL - BP's PP have slowly trended up. They have ranged from SBP 140's to 160's. DBP' s have ranged from 90's to 115. Decision made to start Magnesium. - Q2H Mg checks - Will check pre-E labs to include CBC, CMP, UA, LDH, Uprotein, Ucreatinine - Mg started at 04:00 AM on 07/10/2017 (3) delivery, delivered, current hospitalization Code(s): O82 - ENCOUNTER FOR DELIVERY WITHOUT INDICATION Status: Acute Comment: 21 year old at 38 wks presented for induction of labor for gestational HTN - s/p pLTCS at 11: 21 on 07/09/2017. No complications. EBL 700 mL - Incision clean, dry and intact - Patient started on Magnesium for pre-eclampsia d/t persistently elevated BP's in severe range <Mesha Vega - Last Filed: 07/10/17 05:58> Vital Signs (12 hours) Temp Pulse Resp BP 07/11/17 05:25 97.6 F 91 18 132/77 07/11/17 01:00 98.8 F 80 18 139/78 07/11/17 00:00 98.6 F 84 18 07/10/17 23:00 98.6 F Weight Weight 75.75 kg Result Diagrams: 07/11/17 05:21 07/10/17 04:08 Additional Labs: Post Labs Blood Type B POSITIVE 07/08/17 11:00 Hep Bs Antigen Non-Reactive S/CO (NonReactive) 07/08/17 11:00 (1) Gestational hypertension Code(s): O13.9 - GESTATIONAL HTN W/O SIGNIFICANT PROTEINURIA, UNSP TRIMESTER Status: Acute Qualifiers: Trimester: third trimester Qualified Code(s): O13.3 - Gestational [ -induced] hypertension without significant proteinuria, third trimester Comment: BPs became severe range with proteinuria. See above. <Juana Duncan - Last Filed: 07/11/17 08:29> Attending Addendum - Attending Addendum I personally evaluated the patient and discussed the management with Dr. Bay I agree with the History, Examination, Assessment and Plan documented above with any addition or exceptions noted below. Patient has now progressed to preeclampsia with severe feature due to severe range pressure, headache, and proteinuria. Mag sulfate started for seizure ppx. Monitor UOP hourly. Treat headache and severe range pressures. [facility] <Juana Duncan - Last Filed: 07/11/17 08:29>
[2017-07-10] MEDS: Magnesium Sulfate 20 gm/500 ml 20 GM/500 ML BAG IVPB SCH ×2 (04:10→12:31)
[2017-07-10 04:21] LABS: #Basophils 0.1 thou/uL (0.0-0.2); #Lymphocytes 1.2 thou/uL (1.20-3.40); #Monocytes 0.8 thou/uL (0.11-0.59); #Neutrophils 10.9 thou/uL (1.40-6.50); %Basophils 0.5 % (0.0-1.0); %Eosinophils 0.1 % (0.0-10.0); %Monocytes 6.3 % (0.0-4.0); %Neutrophils 84.1 % (31.0-61.0); Hemoglobin 11.3 g/dL (12.0-16.0); Mean Corpuscular HGB CONC 32.4 g/dL (32.0-36.0); Mean Corpuscular HGB CONC 33.1 g/dL (32.0-36.0); Mean Corpuscular Hemoglobin 32.2 pg (25.0-35.0); Mean Corpuscular Hemoglobin 32.8 pg (25.0-35.0); Mean Corpuscular Volume 99.1 fl (77.0-87.0); Mean Corpuscular Volume 99.4 fl (77.0-87.0); Mean Platelet Volume 7.9 fL (7.4-10.4); Mean Platelet Volume 8.3 fL (7.4-10.4); Platelet Count 173 thou/uL (130-400); Platelet Count 186 thou/uL (130-400); RBC Distribution Width 12.1 % (11.5-14.5); RBC Distribution Width 12.2 % (11.5-14.5); Red Blood Cell (RBC) Count 3.43 mill/uL (4.00-5.20); White Blood Cell (WBC) Count 13.2 thou/uL (4.8-10.8)
[2017-07-10 04:41] LABS: ALT (SGPT) Less than 7 U/L (8-55); AST (SGOT) 18 U/L (5-30); Alkaline Phosphatase 253 U/L (40-150); Anion Gap 10 mmol/L (10-20); BUN (Urea Nitrogen) 6 mg/dL (8.4-21.0); Bilirubin, Total 1.2 mg/dL (0.2-1.2); Calc. Creatinine Clearance 150 mL/min (70-130); Calcium 8.7 mg/dL (7.8-10.44); Carbon Dioxide 23 mmol/L (22-29); Chloride 106 mmol/L (98-107); Estimated GFR-MDRD Greater than 90; Globulin 2.9 g/dL (2.4-3.5); Glucose 97 mg/dL (70-105); Magnesium 1.5 mg/dL (1.7-2.2); Potassium 4.1 mmol/L (3.5-5.1); Protein, Total 5.9 g/dL (6.0-8.3); Sodium 135 mmol/L (136-145); Uric Acid 4.8 mg/dL (2.6-6.0)
[2017-07-10 04:59] LABS: Creatinine, Urine 55.4 mg/dL (47-110)
[2017-07-10] MEDS ORDERED: Labetalol HCl 100 MG/20 ML VIAL SLOW IVP PRN (06:18)
--- NOTE | 2017-07-10 06:53 | PDOC.PP ---
Addendum entered and electronically signed by Mesha Vega DO 07/10/17 09 :25: Please note that diagnosis for problem number one should be Preeclampsia with severe features: Patient had severe range pressures (SBP>160, DBP>110), Proteinuria (Up/Uc of 5) Original Note: Post Progress Note Post Day #: 1 Subjective: Patient doing well. Denies shortness of breath, chest pain, abdominal pain, or swelling. PO intake tolerated: yes Flatus: no Ambulation: no Vital Signs (12 hours) Temp Pulse Resp Pulse Ox 07/10/17 04:27 97.8 F 78 20 99 07/09/17 20:00 97.8 F 78 20 Weight Weight 75.75 kg - Physical Examination General: NAD Deviation from normal: 148/54 Cardiovascular: no m/r/g, RRR Respiratory: clear to auscultation bilaterally, non-labored breathing Abdominal: + bowel sounds, lochia (wnl), no distention Fundus firm & at: umbilicus Skin: CS incision dry & intact, no rash Neurological: no gross focal deficits Deviation from normal: DTR's 2+ Psychiatric: A&Ox3, normal affect Result Diagrams: 07/10/17 04:08 07/10/17 04:08 Additional Labs: Post Labs Blood Type B POSITIVE 07/08/17 11:00 Hep Bs Antigen Non-Reactive S/CO (NonReactive) 07/08/17 11:00 (1) Pre-eclampsia Code(s): O14.90 - UNSPECIFIED PRE-ECLAMPSIA, UNSPECIFIED TRIMESTER Status: Acute Comment: 21 yo at 38.1 wks admitted for IOL for gHTN - s/p pLTCS at 11:21 on 07/09/2017. No complications. EBL 700 mL - BP's PP have slowly trended up. They have ranged from SBP 140's to 160's. DBP' s have ranged from 90's to 115. Decision made to start Magnesium for persistently elevated severe range pressures. - Q2H Mg checks - Will check pre-E labs to include CBC, CMP, UA, LDH, Uprotein, Ucreatinine - Mg started at 04:00 AM on 07/10/2017 - Mg check at 06:52 normal, will recheck patient in 2 hours - One SBP >160 lasting less than 30 minutes, no other SBP >160 since that time - PRN labetolol on for pressures >160 (2) Gestational hypertension Code(s): O13.9 - GESTATIONAL HTN W/O SIGNIFICANT PROTEINURIA, UNSP TRIMESTER Status: Acute QualifierTitle: Trimester: third trimester Qualified Code(s): O13.3 - Gestational [-induced] hypertension without significant proteinuria, third trimester Comment: 21 yo at 38.1 wks admitted for IOL. - s/p pLTCS at 11: 21 on 07/09/2017. No complications. EBL 700 mL - BP's PP have slowly trended up. They have ranged from SBP 140's to 160's. DBP' s have ranged from 90's to 115. Decision made to start Magnesium. - Q2H Mg checks - Will check pre-E labs to include CBC, CMP, UA, LDH, Uprotein, Ucreatinine - Mg started at 04:00 AM on 07/10/2017 (3) delivery, delivered, current hospitalization Code(s): O82 - ENCOUNTER FOR DELIVERY WITHOUT INDICATION Status: Acute Comment: 21 year old at 38 wks presented for induction of labor for gestational HTN - s/p pLTCS at 11: 21 on 07/09/2017. No complications. EBL 700 mL - Incision clean, dry and intact - Patient started on Magnesium for pre-eclampsia d/t persistently elevated BP's in severe range <Mesha Vega - Last Filed: 07/10/17 06:50> Vital Signs (12 hours) Temp Pulse Resp BP 07/11/17 05:25 97.6 F 91 18 132/77 07/11/17 01:00 98.8 F 80 18 139/78 07/11/17 00:00 98.6 F 84 18 07/10/17 23:00 98.6 F Weight Weight 75.75 kg Result Diagrams: 07/11/17 05:21 07/10/17 04:08 Additional Labs: Post Labs Blood Type B POSITIVE 07/08/17 11:00 Hep Bs Antigen Non-Reactive S/CO (NonReactive) 07/08/17 11:00 (1) Gestational hypertension Code(s): O13.9 - GESTATIONAL HTN W/O SIGNIFICANT PROTEINURIA, UNSP TRIMESTER Status: Acute Qualifiers: Trimester: third trimester Qualified Code(s): O13.3 - Gestational [ -induced] hypertension without significant proteinuria, third trimester Comment: BPs became severe range with proteinuria. See above. <Juana Duncan - Last Filed: 07/11/17 08:33> Attending Addendum - Attending Addendum I personally evaluated the patient and discussed the management with Dr. Bay I agree with the History, Examination, Assessment and Plan documented above with any addition or exceptions noted below. POD/PPD#1 Patient doing well. No longer having symptoms. Good hourly UOP since starting mag 100 to 200 mL per hour. Still somewhat concentrated in nichols. BP has been mild range at max on mag. No s/sx of toxicity. Lochia appropriate. Fundus firm. Bandage clean and in place. Pain controlled. Undecided about breast feeding. Continue mag for 24 hour post delivery. Will allow full liquid diet at this time. Monitor closely for progression and/or mag tox. VianneyMD <Juana Duncan - Last Filed: 07/11/17 08:33>
[2017-07-10] MEDS ORDERED: Prenatal Vitamin 1 TAB PO SCH (09:00)
[2017-07-10] MEDS ORDERED: Lidocaine 2% MPF 10 ML AMP (For Epidural Use) ONE (11:11)
[2017-07-10] MEDS ORDERED: Bupivacaine HCl 0.5%/Epinephrine 1:200,000/PF 30 ml Vial ONE (11:11)
--- NOTE | 2017-07-10 14:52 | PDOC.LDPN ---
Labor & Delivery Progress Note - Subjective Subjective: comfortable (Denies headache/vision changes/LALO or RUQ pain) - Objective General: NAD (RRR, CTAB without increased wob, DTRs 2+, no clonus) - Assessment (1) Pre-eclampsia Code(s): O14.90 - UNSPECIFIED PRE-ECLAMPSIA, UNSPECIFIED TRIMESTER Current Visit: Yes Status: Acute Comment: 21 yo at 38.1 wks admitted for IOL for gHTN - s/p pLTCS at 11:21 on 07/09/2017. No complications. EBL 700 mL -Mg started at 04:00 AM on 07/10/2017 -Pit turned off with improvement in urine output -Continue seizure precautions, neurochecks, mag checks -d/c mag at 24h -monitor BP Dr. Dakota bourgeois.
--- NOTE | 2017-07-10 16:05 | PDOC.PP ---
Post Progress Note Post Day #: 1 PO intake tolerated: no (vomited her cheerios. Is getting ready to eat) Flatus: yes Ambulation: no Vital Signs (12 hours) Temp Pulse Resp Pulse Ox 07/10/17 12:00 97.7 F 78 18 07/10/17 08:00 97.8 F 78 18 07/10/17 04:27 97.8 F 78 20 99 Weight Weight 75.75 kg - Physical Examination General: NAD Cardiovascular: no m/r/g, RRR Respiratory: clear to auscultation bilaterally Abdominal: + bowel sounds, no distention, appropriately TTP Skin: CS incision dry & intact Neurological: no gross focal deficits Deviation from normal: Reflexes +2 bilaterally in Upper and Lower Extremities Psychiatric: A&Ox3, normal affect Result Diagrams: 07/10/17 04:08 07/10/17 04:08 Additional Labs: Post Labs Blood Type B POSITIVE 07/08/17 11:00 Hep Bs Antigen Non-Reactive S/CO (NonReactive) 07/08/17 11:00 (1) delivery, delivered, current hospitalization Code(s): O82 - ENCOUNTER FOR DELIVERY WITHOUT INDICATION Status: Acute Comment: 21 year old at 38 wks presented for induction of labor for gestational HTN - s/p pLTCS at 11: 21 on 07/09/2017. No complications. EBL 700 mL - Incision clean, dry and intact - Patient started on Magnesium for pre-eclampsia d/t persistently elevated BP's in severe range (2) Pre-eclampsia Code(s): O14.90 - UNSPECIFIED PRE-ECLAMPSIA, UNSPECIFIED TRIMESTER Status: Acute Comment: 21 yo at 38.1 wks admitted for IOL for gHTN - s/p pLTCS at 11:21 on 07/09/2017. No complications. EBL 700 mL -Mg started at 04:00 AM on 07/10/2017 -Pit turned off with improvement in urine output. Urine output 100 to 200 ml -Continue seizure precautions, neurochecks, mag checks -Reflexes +2 bilaterally. No clonus. Pt denies any visual changes, headaches, dizziness. -d/c mag at 24h -monitor BP Dr. Dakota bourgeois. (3) Gestational hypertension Code(s): O13.9 - GESTATIONAL HTN W/O SIGNIFICANT PROTEINURIA, UNSP TRIMESTER Status: Acute QualifierTitle: Trimester: third trimester Qualified Code(s): O13.3 - Gestational [-induced] hypertension without significant proteinuria, third trimester Comment: 21 yo at 38.1 wks admitted for IOL. - s/p pLTCS at 11: 21 on 07/09/2017. No complications. EBL 700 mL - Pt BP stable. had one pressure at sbp of 157 at 1500. Last BP at 1600 was WNL. 120/70. - Q2H Mg checks -Pre- E labs checked, CBC, CMP, Urine cr/protein ratio normal. No lab abnormality noted. - Mg started at 04:00 AM on 07/10/2017 <Aryan Méndez - Last Filed: 07/10/17 16:02> Vital Signs (12 hours) Temp Pulse Resp 07/10/17 16:00 98.4 F 85 20 07/10/17 12:00 97.7 F 78 18 07/10/17 08:00 97.8 F 78 18 Weight Weight 75.75 kg Result Diagrams: 07/10/17 04:08 07/10/17 04:08 Additional Labs: Post Labs Blood Type B POSITIVE 07/08/17 11:00 Hep Bs Antigen Non-Reactive S/CO (NonReactive) 07/08/17 11:00 (1) Pre-eclampsia Code(s): O14.90 - UNSPECIFIED PRE-ECLAMPSIA, UNSPECIFIED TRIMESTER Status: Acute Comment: 21 yo at 38.1 wks admitted for IOL for gHTN - s/p pLTCS at 11:21 on 07/09/2017. No complications. EBL 700 mL -Mg started at 04:00 AM on 07/10/2017 -Pit turned off with improvement in urine output. Urine output 100 to 200 ml -Continue seizure precautions, neurochecks, mag checks -Reflexes +2 bilaterally. No clonus. Pt denies any visual changes, headaches, dizziness. -d/c mag at 24h -monitor BP Dr. Dakota bourgeois. <Asad Diallo - Last Filed: 07/10/17 17:48> Attending Addendum - Attending Addendum I personally evaluated the patient and discussed the management with Dr. Méndez. I agree with the History, Examination, Assessment and Plan documented above with any addition or exceptions noted below. Continue Mg, Mg/neurochecks/seizure precautions, strict I&Os. Discussed with Dr. Duncan who is proctoring. <Asad Diallo - Last Filed: 07/10/17 17:48>
--- NOTE | 2017-07-10 21:28 | PDOC.PP ---
Post Progress Note Post Day #: 2 Subjective: Umm Kong seen at bedside for mag check. She is doing well, she has no complaints. She denies confusion, vision changes, headaches, chest pain, dyspnea. PO intake tolerated: yes Vital Signs (12 hours) Temp Pulse Resp 07/10/17 16:00 98.4 F 85 20 07/10/17 12:00 97.7 F 78 18 Weight Weight 75.75 kg - Physical Examination General: NAD Cardiovascular: no m/r/g, RRR Respiratory: clear to auscultation bilaterally, non-labored breathing Abdominal: + bowel sounds, appropriately TTP Skin: CS incision dry & intact Neurological: no gross focal deficits (normal DTRs, no clonus) Psychiatric: A&Ox3, normal affect Result Diagrams: 07/10/17 04:08 07/10/17 04:08 Additional Labs: Post Labs Blood Type B POSITIVE 07/08/17 11:00 Hep Bs Antigen Non-Reactive S/CO (NonReactive) 07/08/17 11:00 (1) delivery, delivered, current hospitalization Code(s): O82 - ENCOUNTER FOR DELIVERY WITHOUT INDICATION Status: Acute Comment: 21 year old at 38 wks presented for induction of labor for gestational HTN - s/p pLTCS at 11: 21 on 07/09/2017. No complications. EBL 700 mL - Incision clean, dry and intact - Patient started on Magnesium for pre-eclampsia d/t persistently elevated BP's in severe range (2) Pre-eclampsia Code(s): O14.90 - UNSPECIFIED PRE-ECLAMPSIA, UNSPECIFIED TRIMESTER Status: Acute Comment: 21 yo at 38.1 wks admitted for IOL for gHTN - s/p pLTCS at 11:21 on 07/09/2017. No complications. EBL 700 mL -Mg started at 04:00 AM on 07/10/2017 -Pit turned off with improvement in urine output. Urine output 100 to 200 ml -Continue seizure precautions, neurochecks, mag checks -Reflexes +2 bilaterally. No clonus. Pt denies any visual changes, headaches, dizziness. -d/c mag at 24h -monitor BP Dr. Dakota bourgeois. (3) Term Code(s): Z34.80 - ENCOUNTER FOR SUPRVSN OF NORMAL , UNSP TRIMESTER Status: Acute Comment: 21 year old at 38 wks presents for induction of labor for gestational HTN - s/p pLTCS at 11: 21 on 07/09/2017. No complications. EBL 700 mL (4) Gestational hypertension Code(s): O13.9 - GESTATIONAL HTN W/O SIGNIFICANT PROTEINURIA, UNSP TRIMESTER Status: Acute QualifierTitle: Trimester: third trimester Qualified Code(s): O13.3 - Gestational [-induced] hypertension without significant proteinuria, third trimester Comment: 21 yo at 38.1 wks admitted for IOL. - s/p pLTCS at 11: 21 on 07/09/2017. No complications. EBL 700 mL - Pt BP stable. had one pressure at sbp of 157 at 1500. Last BP at 1600 was WNL. 120/70. - Q2H Mg checks -Pre- E labs checked, CBC, CMP, Urine cr/protein ratio normal. No lab abnormality noted. - Mg started at 04:00 AM on 07/10/2017 - Assessment/Plan At 11 pm, it will be 24 hrs since start of Mag. Patient has remained asymptomatic with normal DTRs, her BPs have been 120s/60s. Her urine output has been 200 ml over the last hour. We will stop Mag at 11 pm. <Aman Tinoco - Last Filed: 07/10/17 21:27> Vital Signs (12 hours) Temp Pulse Resp BP 07/11/17 05:25 97.6 F 91 18 132/77 07/11/17 01:00 98.8 F 80 18 139/78 07/11/17 00:00 98.6 F 84 18 07/10/17 23:00 98.6 F Weight Weight 75.75 kg Result Diagrams: 07/11/17 05:21 07/10/17 04:08 Additional Labs: Post Labs Blood Type B POSITIVE 07/08/17 11:00 Hep Bs Antigen Non-Reactive S/CO (NonReactive) 07/08/17 11:00 (1) Pre-eclampsia Code(s): O14.90 - UNSPECIFIED PRE-ECLAMPSIA, UNSPECIFIED TRIMESTER Status: Acute Comment: 21 yo at 38.1 wks admitted for IOL for gHTN - s/p pLTCS at 11:21 on 07/09/2017. No complications. EBL 700 mL -Mg started at 04:00 AM on 07/10/2017 -Pit turned off with improvement in urine output. Urine output 100 to 200 ml -Continue seizure precautions, neurochecks, mag checks -Reflexes +2 bilaterally. No clonus. Pt denies any visual changes, headaches, dizziness. -d/c mag at 24h -monitor BP Dr. Dakota bourgeois. <Asad Diallo - Last Filed: 07/11/17 08:49> Attending Addendum - Attending Addendum I personally evaluated the patient and discussed the management with team. I agree with the History, Examination, Assessment and Plan documented above with any addition or exceptions noted below. D/c mag as planned due to improvement. Monitor symptoms and BP. Dr. Dakota bourgeois. <Asad Diallo - Last Filed: 07/11/17 08:49>
[2017-07-10] MEDS: Docusate Calcium (SURFAK) 240 MG CAP PO SCH ×2 (23:43→23:52)
[2017-07-10] MEDS: Ferrous Sulfate 325 MG TAB PO SCH ×2 (23:43→23:52)
[2017-07-11] MEDS ORDERED: Lanolin Ointment 7 GM TUBE TOP PRN (01:50)
[2017-07-11] MEDS ORDERED: Adacel (T-DAP) 0.5 ML VIAL IM ONE (01:50)
[2017-07-11] MEDS ORDERED: Ferrous Sulfate 325 MG TAB PO SCH (02:00)
[2017-07-11] MEDS ORDERED: Ibuprofen 800 MG TAB PO SCH ×2 (02:00→14:00)
[2017-07-11] MEDS ORDERED: Prenatal Vitamin 1 TAB PO SCH (02:00)
[2017-07-11 05:36] LABS: Hemoglobin 8.8 g/dL (12.0-16.0); Mean Corpuscular HGB CONC 33.5 g/dL (32.0-36.0); Mean Corpuscular Volume 98.6 fl (77.0-87.0); Mean Platelet Volume 7.9 fL (7.4-10.4); Platelet Count 162 thou/uL (130-400); Red Blood Cell (RBC) Count 2.68 mill/uL (4.00-5.20); White Blood Cell (WBC) Count 9.3 thou/uL (4.8-10.8)
--- NOTE | 2017-07-11 07:24 | PDOC.PP ---
Post Progress Note Post Day #: 2 Subjective: Rested comfortably overnight. Denies complaints. Pain well controlled. Threw up x1 last night - attributes it to eating too fast. Plans to eat breakfast this AM. PO intake tolerated: yes Flatus: yes Ambulation: yes Vital Signs (12 hours) Temp Pulse Resp BP Pulse Ox 07/11/17 05:25 97.6 F 91 18 132/77 07/11/17 01:00 98.8 F 80 18 139/78 07/11/17 00:00 98.6 F 84 18 07/10/17 23:00 98.6 F 07/10/17 20:00 98.6 F 84 18 99 Weight Weight 75.75 kg - Physical Examination General: NAD Cardiovascular: no m/r/g, RRR Respiratory: clear to auscultation bilaterally, non-labored breathing Abdominal: + bowel sounds, lochia, no distention, appropriately TTP Fundus firm & at: below umbilicus Skin: CS incision dry & intact Neurological: no gross focal deficits Psychiatric: normal affect Result Diagrams: 07/11/17 05:21 07/10/17 04:08 Additional Labs: Post Labs Blood Type B POSITIVE 07/08/17 11:00 Hep Bs Antigen Non-Reactive S/CO (NonReactive) 07/08/17 11:00 (1) Pre-eclampsia, severe, delivered Code(s): O14.10 - SEVERE PRE-ECLAMPSIA, UNSPECIFIED TRIMESTER Status: Acute Comment: - s/p pLTCS at 11:21 on 07/09/2017. No complications. EBL 700 mL -Persistently elevated severe range blood pressures and new proteinuria (UPr/Cr 0.52) prompted Mg prophylaxis following delivery -Mg given for 24 hours with d/c @ 2300 on 07/10/2017 -BPs now in normal range -Pt denies any visual changes, headaches, dizziness. -monitor BP (2) delivery, delivered, current hospitalization Code(s): O82 - ENCOUNTER FOR DELIVERY WITHOUT INDICATION Status: Acute Comment: 21 year old at 38 wks presented for induction of labor for gestational HTN - s/p pLTCS at 2321 on 07/09/2017. No complications. EBL 700 mL - Incision clean, dry and intact - Patient received Magnesium for pre-eclampsia d/t persistently elevated BP's in severe range and new-onset proteinuria - Ambulating, stooling without issue. Vomited x1. Monitor for nausea this AM. Plan for d/c tomorrow as primary C/S and G1. (3) Gestational hypertension Code(s): O13.9 - GESTATIONAL HTN W/O SIGNIFICANT PROTEINURIA, UNSP TRIMESTER Status: Acute QualifierTitle: Trimester: third trimester Qualified Code(s): O13.3 - Gestational [-induced] hypertension without significant proteinuria, third trimester Comment: BPs became severe range with proteinuria. See above. <Nabil Ulrich - Last Filed: 07/11/17 07:23> Vital Signs (12 hours) Temp Pulse Resp BP 07/11/17 07:55 98.9 F 92 20 126/82 07/11/17 05:25 97.6 F 91 18 132/77 07/11/17 01:00 98.8 F 80 18 139/78 07/11/17 00:00 98.6 F 84 18 07/10/17 23:00 98.6 F Weight Weight 75.75 kg Result Diagrams: 07/11/17 05:21 07/10/17 04:08 Additional Labs: Post Labs Blood Type B POSITIVE 07/08/17 11:00 Hep Bs Antigen Non-Reactive S/CO (NonReactive) 07/08/17 11:00 <Juana Duncan - Last Filed: 07/11/17 09:16> Attending Addendum - Attending Addendum I personally evaluated the patient and discussed the management with Dr. Ulrich I agree with the History, Examination, Assessment and Plan documented above with any addition or exceptions noted below. 21 yo now female s/p PLTCS at 38.1 wks on 07/09/17 at 2321 for NRFHT remote from delivery, failed induction. POD/PPD#2 Patient doing well. Off mag sulfate. Asymptomatic. Lochia mild. Pain controlled. Ambulating. Tolerating breakfast this AM. VS reviewed. No high normal BP noted. UOP 700 mL voided. Still concentrated. NAD. RRR. No respiratory distress. CTAB. Fundus firm. NT. Incision healing well. No edema. 1. s/p PLTCS: Routine postop and pp care. Monitor incision. 2. preeclampsia with severe features: s/p mag sulfate 24 hours. Still with concentrated urine. Output slowed somewhat. Will give one time dose of Lasix. Monitor. Remains asymptomatic. Recommend ASA with future pregnancies. BP high normal. Monitor to see if PO BP medication needed. 3. hx of Chlamydia infection: Treated. Needs KENNEDI after d/c. Asymptomatic. 4. Incomplete care: Has good support at home. 5. Anemia of acute blood loss: On iron supplementation. Likely a component of hemodilution as well. Asymptomatic. 6. Contraception: LARC 7. Breast feeding: Undecided. today. Dispo: Routine care. Monitor in patient 48 hours after mag for BP and symptom control. ABrClint <Juana Duncan - Last Filed: 07/11/17 09:16>
[2017-07-11] MEDS: Prenatal Vitamin 1 TAB PO SCH (08:09)
[2017-07-11] MEDS: Docusate Calcium (SURFAK) 240 MG CAP PO SCH ×2 (08:10→21:51)
[2017-07-11] MEDS: Ferrous Sulfate 325 MG TAB PO SCH ×2 (08:10→17:45)
[2017-07-11] MEDS: HYDROcodone/Acetaminophen 5/325 mg Tablet PO PRN (08:10)
[2017-07-11] MEDS ORDERED: Furosemide 20 MG/2 ML VIAL SLOW IVP SCH (09:00)
[2017-07-12] MEDS: HYDROcodone/Acetaminophen 5/325 mg Tablet PO PRN ×3 (01:47→18:57)
--- NOTE | 2017-07-12 07:00 | PDOC.PP ---
Post Progress Note Post Day #: 3 Subjective: Patient doing well this AM. No significant overnight events. Patient ambulating without difficulty. Patient tolerating PO intake. Pain well controlled. PO intake tolerated: yes Flatus: yes Ambulation: yes Vital Signs (12 hours) Temp Pulse Resp BP 07/12/17 01:45 98.1 F 78 16 129/81 07/11/17 19:33 98.9 F 94 18 126/84 Weight Weight 75.75 kg - Physical Examination General: NAD Cardiovascular: no m/r/g, RRR Respiratory: clear to auscultation bilaterally, non-labored breathing Abdominal: + bowel sounds, lochia (wnl), no distention, appropriately TTP Fundus firm & at: below umbilicus Extremities: negative homans (B) Skin: CS incision dry & intact, no rash Neurological: no gross focal deficits Psychiatric: A&Ox3, normal affect Result Diagrams: 07/11/17 05:21 07/10/17 04:08 Additional Labs: Post Labs Blood Type B POSITIVE 07/08/17 11:00 Hep Bs Antigen Non-Reactive S/CO (NonReactive) 07/08/17 11:00 (1) Pre-eclampsia Code(s): O14.90 - UNSPECIFIED PRE-ECLAMPSIA, UNSPECIFIED TRIMESTER Status: Acute Comment: 21 yo at 38.1 wks admitted for IOL for gHTN -s/p pLTCS at 11:21 on 07/09/2017. No complications. EBL 700 mL -Mg started at 04:00 AM on 07/10/2017; Mg stopped after 24 hours -Lasix given to increase urine output; 4200 mL out in last 24 hours -Continue seizure precautions, neurochecks -Monitor BP -Recommend ASA in future pregnancies -Pre-eclampsia with severe features Dr. Dakota bourgeois. (2) Gestational hypertension Code(s): O13.9 - GESTATIONAL HTN W/O SIGNIFICANT PROTEINURIA, UNSP TRIMESTER Status: Acute QualifierTitle: Trimester: third trimester Qualified Code(s): O13.3 - Gestational [-induced] hypertension without significant proteinuria, third trimester Comment: BPs became severe range with proteinuria. See above. (3) delivery, delivered, current hospitalization Code(s): O82 - ENCOUNTER FOR DELIVERY WITHOUT INDICATION Status: Acute Comment: 21 year old at 38 wks presented for induction of labor for gestational HTN - s/p pLTCS at 2321 on 07/09/2017. No complications. EBL 700 mL - Incision clean, dry and intact - Patient received Magnesium for pre-eclampsia d/t persistently elevated BP's in severe range and new-onset proteinuria - Ambulating, stooling without issue. Vomited x1. Monitor for nausea this AM. Plan for d/c today as primary C/S and G1 -nutrition consultant to assist with ; unavailable yesterday and today -Patient desires contraception in form of LARC (4) Acute blood loss anemia Code(s): D62 - ACUTE POSTHEMORRHAGIC ANEMIA Status: Acute Comment: -Hg 8.8 yesterday which was down from 11.3 the previous day -Likely dilutional -Patient asymptomatic -Continue to monitor for signs and symptoms of anemia -Continue iron supplementation BID <Mesha Vega - Last Filed: 07/12/17 08:29> Vital Signs (12 hours) Temp Pulse Resp BP 07/12/17 11:50 98.0 F 97 20 134/87 07/12/17 08:30 98.4 F 80 20 07/12/17 08:02 98.4 F 80 20 140/90 Weight Weight 75.75 kg Result Diagrams: 07/11/17 05:21 07/10/17 04:08 Additional Labs: Post Labs Blood Type B POSITIVE 07/08/17 11:00 Hep Bs Antigen Non-Reactive S/CO (NonReactive) 07/08/17 11:00 <Juana Duncan - Last Filed: 07/12/17 18:34> Attending Addendum - Attending Addendum I personally evaluated the patient and discussed the management with Dr. Bay I agree with the History, Examination, Assessment and Plan documented above with any addition or exceptions noted below. 21 yo now female s/p PLTCS at 38.1 wks on 07/09/17 at 2321 for NRFHT remote from delivery, failed induction. POD/PPD#3 Patient doing well. Asymptomatic. Lochia mild. Pain controlled. Ambulating. Tolerating PO well. VS reviewed. One mild range BP only in pp period. Otherwise normal range. Great UOP NAD. RRR. No respiratory distress. CTAB. Fundus firm. NT. Incision healing well. No edema. 1. s/p PLTCS: Routine postop and pp care. Monitor incision. Needs Follow up at [facility] in 3 days. 2. preeclampsia with severe features: s/p mag sulfate. Off 48 hours. Great UOP. Remains asymptomatic. Recommend ASA with future pregnancies. BP high normal. No BP meds needed. Needs BP check in 3 days at [facility]. 3. hx of Chlamydia infection: Treated. Needs KENNEDI after d/c. Asymptomatic. 4. Incomplete care: Has good support at home. 5. Anemia of acute blood loss: On iron supplementation. Likely a component of hemodilution as well. Asymptomatic. 6. Contraception: LARC 7. Bottle feeding Dispo: ok for d/c today Ino <Juana Duncan - Last Filed: 07/12/17 18:34>
[2017-07-12] MEDS: Prenatal Vitamin 1 TAB PO SCH (08:49)
[2017-07-12] MEDS: Ferrous Sulfate 325 MG TAB PO SCH ×2 (08:49→18:56)
[2017-07-12] MEDS: Docusate Calcium (SURFAK) 240 MG CAP PO SCH (08:49)
[2017-07-12 11:50] VITALS: BP 134/87; TEMP 98
== END 2017-07-12 20:01 | disposition home or self-care (01) | DRG 765 ==
LOC: L&D 10:28 → 3SW 07-11 01:24
PROVIDERS: ADMIT Emergency Medicine; ATTEND Student in an Organized Health Care Education/Training Program
PROC: 3E0P7VZ Introduction of Hormone into Female Reproductive, Via Natural or Artificial Opening (ICD-10-PCS; 2017-07-09)
PROC: 10H07YZ Insertion of Other Device into Products of Conception, Via Natural or Artificial Opening (ICD-10-PCS; 2017-07-09)
PROC: 4A1H74Z Monitoring of Products of Conception, Cardiac Electrical Activity, Via Natural or Artificial Opening (ICD-10-PCS; 2017-07-09)
PROC: 10907ZC Drainage of Amniotic Fluid, Therapeutic from Products of Conception, Via Natural or Artificial Opening (ICD-10-PCS; 2017-07-09)
PROC: 0U7C7ZZ Dilation of Cervix, Via Natural or Artificial Opening (ICD-10-PCS; 2017-07-09)
PROC: 10D00Z1 Extraction of Products of Conception, Low, Open Approach (ICD-10-PCS; principal; 2017-07-10)
DX: O14.14 Severe pre-eclampsia complicating childbirth (principal); O98.32 Other infections with a predominantly sexual mode of transmission complicating childbirth; D62 Acute posthemorrhagic anemia; O61.0 Failed medical induction of labor; Z3A.38 38 weeks gestation of pregnancy; Z37.0 Single live birth; O76 Abnormality in fetal heart rate and rhythm complicating labor and delivery; A56.8 Sexually transmitted chlamydial infection of other sites; O90.81 Anemia of the puerperium
CPT/HCPCS: 36415; 51702; 80053; 81001; 82570; 82805; 83615; 83735; 84156; 84550; 85027; 86780; 86850; 86900; 86901; 87340; 88307; A4216; C1726; J0595; J0670; J1100; J1200; J1885; J1940; J2001; J2274; J2405; J2590; J3010; J3475; J3490; J7050; J7120